=== PATIENT | male | born 1965 | race Caucasian/White ===

== ENCOUNTER 2025-10-02 13:56 | Emergency (ER) | payer BC, SELFPAY ==
[2025-10-02 13:57] VITALS: BP 150/75
[2025-10-02 14:26] LABS: Hematocrit 42.7 % (39.0-52.0); Hemoglobin 14.3 g/dL (13.0-18.0); Mean Corp Hgb Conc. 33.5 g/dL (33.0-37.0); Mean Corpuscular Volume 80.9 fL (80.0-94.0); Nucleated Red Blood Cells % 0 % (-); Platelet Count 265 10^3/uL (130-400); Red Cell Dist. Width 13.6 % (11.5-14.5)
[2025-10-02 14:41] LABS: ALT (SGPT) 22 U/L (0-50); AST (SGOT) 22 U/L (17-59); Albumin 4.7 g/dl (3.5-5.0); Alkaline Phosphatase 69 U/L (38-126); Blood Urea Nitrogen 17 mg/dl (9-20); Calcium 9.5 mg/dl (8.4-10.2); Carbon Dioxide 28 mmol/L (22-30); Chloride 95 mmol/L (98-107); Glucose 129 mg/dl (70-99); Lipase 121 U/L (23-300); Potassium 3.0 mmol/L (3.5-5.1); Sodium 133 mmol/L (135-145); Total Protein 7.8 g/dl (6.3-8.2); eGFR > 60.00
[2025-10-02 14:56] LABS: COVID-19 Antigen Negative (Negative)
[2025-10-02 18:43] VITALS: BMI 17.0
[2025-10-02 18:45] VITALS: BP 135/66
[2025-10-02 19:00] VITALS: BP 127/63
[2025-10-02] MEDS: KCL 40 MEQ PO (19:43)
[2025-10-02] MEDS: NSS 1000 IV (19:43)
[2025-10-02 19:55] LABS: Urine Character Clear (Clear)
[2025-10-02 20:00] VITALS: BP 121/72
[2025-10-02 20:04] LABS: Urine Red Blood Cell 0-2 /HPF (0-2); Urine Squamous Cell 0-2 /LPF (Few); Urine White Cell 90-100 /HPF (0-5)
[2025-10-02] MEDS: CIPRO 500 MG PO (20:48)
--- NOTE | 2025-10-02 23:26 | ED.GENMED ---
History of Present Illness
General
Chief Complaint: Heart Rate Problem
Source: patient
Exam Limitations: none
Time Seen by Provider: 10/02/25 18:57
Nursing documentation reviewed up to this point in time: agreed with
History of Present Illness
History of Present Illness:
Patient to the emergency department with complaint of rapid heart rate. States his symptoms started last night. States he notices some lower abdominal discomfort however this discomfort is intermittent. He denies any nausea vomiting or diarrhea.
He denies any fever or chills. He denies any chest pain/pressure, shortness of breath. No prior history of same. Brought to the emergency department by spouse for evaluation.
Past History
Past History
ED Past Medical History: Other (hypoglycemia, gi bleed 2011)
ED Past Surgical History: None
Social History
Tobacco: Non-smoker
Alcohol: None
Drug: None
Personal:
Review of Systems
Review of Systems
Allergies reviewed?: Yes
All Other Systems: ROS reviewed and negative except as documented in HPI and ROS
Constitutional: Reports no symptoms
EENT: Reports no symptoms
Respiratory: Reports no symptoms
Cardiac: Reports other (Reports rapid heart rate since last p.m.)
ABD/GI: Reports abdominal pain (Intermittent mild lower abdominal pain)
: Reports no symptoms
Musculoskeletal: Reports no symptoms
Skin: Reports no symptoms
Neurological: Reports no symptoms
Psychiatric: Reports no symptoms
Phy Exam
General Physical Exam
General Presentation: well appearing and no apparent distress
General age: appears stated age
General Skin: warm and dry
General Habitus: normal
Cardiovascular Exam
Cardiovascular Exam: regular rate/rhythm and no edema
Pulmonary Exam
Pulmonary Exam: lungs clear and no respiratory distress
Gastrointestinal Exam
Gastrointestinal Exam: normal bowel sounds, non tender, soft, no organomegaly, no pulsatile mass and non distended
Musculoskeletal Exam
Musculoskeletal Exam: full ROM
Skin Exam
Skin Exam: normal color, warm/dry and no rash
Psychiatric Exam
Psychiatric Exam: normal mood/affect
Course
Orders/Labs/Results
Orders:
Orders
10/02/25 14:00
Electrocardiogram (*1) Urgent
Reason for Study: Palpitations
EKG- Treatment ONCE
10/02/25 14:11
COVID-19 Antigen Urgent
Source: Nasal Swab
Complete Blood Count/With Diff Urgent
Comprehensive Metabolic Panel Urgent
Lipase Urgent
Influenza A+B Rapid Molecular Urgent
ЮЛИЯ Source: Nasal Swab
Specimen Description:
10/02/25 19:28
Potassium Chloride [KCl] 40 meq PO NOW STA
10/02/25 19:35
0.9% Sodium Chloride 1000 ml [Nss] 1,000 ml IV BOLUS
10/02/25 19:45
Urinalysis Reflex To Culture Urgent
Date Specimen was Collected: 10/02/25
Time Specimen was Collected: 19:41
Urine Microscopic Reflex Cult Urgent
Urine Culture Urgent
ЮЛИЯ Source: U
Specimen Description:
Date Specimen was Collected: 10/02/25
Time Specimen was Collected: 19:41
10/02/25 20:14
Ciprofloxacin HCl [Cipro] 500 mg PO NOW STA
Abnormal Lab Results
10/02/25 10/02/25
14:11 19:45
WBC 17.4 H 10^3/uL
(4.8-10.8)
Abs Immat Gran (auto) 0.1 H 10^3/uL
(0-0.05)
Absolute Neuts (auto) 14.7 H 10^3/uL
(1.4-6.5)
Absolute Lymphs (auto) 1.0 L 10^3/uL
(1.2-3.4)
Absolute Monos (auto) 1.7 H 10^3/uL
(0.1-0.6)
Neutrophils % 84.0 H %
(42.2-75.2)
Lymphocytes % 5.5 L %
(20.5-51.1)
Monocytes % 9.6 H %
(1.7-9.3)
Sodium 133 L mmol/L
(135-145)
Potassium 3.0 L mmol/L
(3.5-5.1)
Chloride 95 L mmol/L
(98-107)
Glucose 129 H mg/dl
(70-99)
Ur Occult Blood Reflex 3+ A
(Negative)
Leukocyte Esterase Rfl 2+ A
(Negative)
Urine WBC (Reflex) 90-100 A /HPF
(0-5)
Urine Glucose 3+ A
(Negative)
Urine Albumin (Reflex) 2+ A
(Neg - Trace)
10/02/25 14:11
10/02/25 14:11
Vital Signs
Initial and Last Documented VS:
Initial Vital Signs
Temp Pulse Resp BP Pulse Ox
98.9 F 125 19 150/75 99
10/02/25 13:57 10/02/25 13:57 10/02/25 13:57 10/02/25 13:57 10/02/25 13:57
Last Documented Vital Signs
Temp Pulse Resp BP Pulse Ox
98.9 F 86 19 121/72 98
10/02/25 13:57 10/02/25 20:30 10/02/25 20:30 10/02/25 20:00 10/02/25 23:27
*Pulse Oximetry
SaO2: 98
Oxygen Mode of Delivery: Room air
Patient hypoxic: no
*Critical Care Note
Total Time (30-74mins, 75-104mins- exclusive of procedures): Not Applicable
Update Note
Update Note:
Patient to the emergency department for evaluation of rapid heart rate, intermittent mild lower abdominal pain. Symptoms started yesterday. He denies any fever or chills, nausea vomiting diarrhea, chest pain/pressure, shortness of breath. Vital
signs are stable and he remains afebrile. NSR. Labs reviewed. WBC 17.4 noted. Sodium 133, potassium 3.0. He was given 40 mEq of potassium chloride while in ED along with 1 L NSS. UA with 90-100 WBCs +2 leukocytes +3 occult blood, concerning
for UTI. He was placed on Cipro in the ED and will continue twice daily x 7 days. He will be discharged home with close follow-up with PCP. Patient and spouse were given instructions on signs and symptoms to return to the emergency department and
he is agreeable to this plan.
ED Attending Note
-
Portions of this chart may have been created with voice recognition software.� Occasional wrong word or��sound alike� substitutions may have occurred due to the inherent limitations of voice recognition software.
Discharge Plan
Departure
Patient Disposition: Home (Routine Discharge)
Date of Disposition: 10/02/25
Time of Disposition: 20:17
Patient with high blood pressure during this ER visit?: No
Condition: Good
Covid-19: Not Applicable
Discharge Problem:
UTI (urinary tract infection)
Instructions: Urinary tract infections in adults
Prescriptions:
New
ciprofloxacin HCl 500 mg tablet
500 mg PO BID Qty: 14 0RF
No Action
triamterene-hydrochlorothiazid 1 EACH capsule
1 ea PO DAILY
Referrals:
NONE,* [Family Provider, Internal Medicine]
Activity Restrictions/Additional Instructions:
Return to the emergency department immediately for any changes in/worsening of your symptoms
Interventions
Interventions:
*General Assessment Last Done: 10/02/25 13:59
*Neglect/Abuse Screening Last Done: 10/02/25 13:59
*ED COVID-19 Vaccine History Last Done: 10/02/25 13:59
*ED Influenza Vaccine History Last Done: 10/02/25 13:59
[facility] Risk Assessment Tool Last Done: 10/02/25 21:02
*Risk Screen - Suicide (C-SSRS) Last Done: 10/02/25 13:59
*Nursing Disposition Last Done: 10/02/25 21:03
ED- Cardiac Assessment Last Done: 10/02/25 21:01
ED- Pulmonary Assessment Last Done: 10/02/25 21:01
Discharge Date and Time
Discharge Date/Time: 10/02/25 21:05
Print Language: [email or web address]
== END 2025-10-02 21:05 | disposition home or self-care (01) ==
LOC: EMR 13:56
PROVIDERS: Emergency Medicine; Nurse Practitioner; EMERGENCY PHYSICIAN Student in an Organized Health Care Education/Training Program
DX: N39.0 Urinary tract infection, site not specified (principal); R00.0 Tachycardia, unspecified
CPT/HCPCS: 99283; 80053; 81003; 81015; 83690; 85025; 87077; 87086; 87186; 87502; 87811; 93005